=== PATIENT | female | born 1995 | race American Indian/Alaskan Native ===

== ENCOUNTER 2019-06-15 18:45 | Emergency (ER) | payer MEDICAID ==
[~2019-06-15] VITALS: Ht 165.1 cm; Wt 70.0 kg
[2019-06-15 18:59] VITALS: TEMP 97.3
[2019-06-15] MEDS ORDERED: PRENATAL TABLET PO (19:32)
[2019-06-15 19:36] LABS: COLLECTION METHOD CLEAN CATCH
[2019-06-15] MEDS ORDERED: TUMS500 MG (19:36)
[2019-06-15 20:10] LABS: BASO # 0.1 (0.0-0.2); BASO % 0.3 % (0.0-2.0); EOS # 0.2 (0.0-0.7); EOS % 1.3 % (0-4.0); GRAN # 10.9 (1.4-6.5); GRAN % 75.9 % (42.2-75.2); LYMPH # 2.4 (1.2-3.4); LYMPH % 16.9 % (20.0-51.0); MEAN CELL VOLUME 95 fl (80.0-100.0); MEAN CORPUSCULAR HEMOGLOBIN 32 pg (27.0-31.0); MEAN CORPUSCULAR HGB CONC 33 g/dl (33.0-37.0); MEAN PLATELET VOLUME 9.8 fl (7.4-10.4); MONO # 0.7 (0.1-0.6); PLATELET COUNT 399 K/mm3 (130-400); RED BLOOD COUNT 3.79 M/mm3 (4.10-5.30); REDCELL DISTRIBUTION WIDTH-CV 13.5 % (11.5-14.5)
[2019-06-15 20:19] LABS: HEMATOCRIT 35.9 % (37.0-47.0)
[2019-06-15 20:23] LABS: ALBUMIN 4.1 gm/dL (3.5-5.0); BILIRUBIN,TOTAL 0.2 mg/dL (0.0-1.0); C-REACTIVE PROTEIN 0.7 mg/dL (0.0-0.9); CALCIUM 9.3 mg/dL (8.4-10.2); CREATININE, serum 0.47 (0.52-1.25); POTASSIUM 3.6 mmol/L (3.4-5.0); TOTAL PROTEIN 7.4 gm/dL (6.4-8.2)
[2019-06-15 20:53] LABS: PH 7 (5-8); SQUAMOUS EPITHELIAL 0-2 /hpf; URINE APPEARANCE Clear; URINE BACTERIA Rare /hpf; URINE BILIRUBIN Negative (NEGATIVE); URINE BLOOD Negative (NEGATIVE); URINE COLOR Yellow; URINE GLUCOSE Negative (NEGATIVE); URINE KETONE Negative (NEGATIVE); URINE LEUKOCYTE ESTERASE Negative (NEGATIVE); URINE NITRATE Negative (NEGATIVE); URINE PROTEIN(semi-quant) Negative (NEGATIVE); URINE RBC 0-2 /hpf; URINE UROBILINOGEN Negative (NEGATIVE)
[2019-06-15 22:04] VITALS: BP 120/72; PULSE 93
== END 2019-06-15 22:04 | disposition home or self-care (01) ==
LOC: COL.ER 18:45
PROVIDERS: Emergency Medicine
DX: O99.612 Diseases of the digestive system complicating pregnancy, second trimester (principal); R19.7 Diarrhea, unspecified; O99.332 Smoking (tobacco) complicating pregnancy, second trimester; F17.210 Nicotine dependence, cigarettes, uncomplicated; Z3A.23 23 weeks gestation of pregnancy
CPT/HCPCS: J7030

== ENCOUNTER 2019-07-21 21:10 | Emergency (ER) | payer MEDICAID ==
[~2019-07-21] VITALS: Ht 165.1 cm; Wt 73.6 kg
[~2019-07-21 21:10] MED LIST: PRENATAL TABLET PO; TUMS500 MG
[2019-07-21 21:55] LABS: COLLECTION METHOD CLEAN CATCH
[2019-07-21 22:01] LABS: MUCOUS Present /lpf; PH 7 (5-8); SQUAMOUS EPITHELIAL 0-2 /hpf; URINE APPEARANCE Clear; URINE BACTERIA Rare /hpf; URINE BILIRUBIN Negative (NEGATIVE); URINE BLOOD 1+ (NEGATIVE); URINE COLOR Yellow; URINE GLUCOSE Negative (NEGATIVE); URINE KETONE Negative (NEGATIVE); URINE LEUKOCYTE ESTERASE Negative (NEGATIVE); URINE NITRATE Negative (NEGATIVE); URINE PROTEIN(semi-quant) Negative (NEGATIVE); URINE RBC 0-2 /hpf; URINE UROBILINOGEN Negative (NEGATIVE)
[2019-07-21] MEDS ORDERED: TAMIFLU 75MG75 MG PO (22:44)
[2019-07-21 22:47] VITALS: BP 113/67; PULSE 100; TEMP 98.7
== END 2019-07-21 22:54 | disposition home or self-care (01) ==
LOC: COL.ER 21:10
PROVIDERS: Emergency Medicine
DX: J11.1 Influenza due to unidentified influenza virus with other respiratory manifestations (principal); F17.210 Nicotine dependence, cigarettes, uncomplicated

== ENCOUNTER 2019-09-04 14:40 | Outpatient (CLI) | payer MEDICAID ==
[~2019-09-04] VITALS: Ht 165.1 cm; Wt 70.0 kg
[~2019-09-04 14:40] MED LIST changes: +TAMIFLU 75MG75 MG PO
[2019-09-04 14:44] VITALS: BP 120/78; PULSE 99; TEMP 98
--- NOTE | 2019-09-04 14:55 | NUR ---
Patient ambulatory to unit accompanied by family. Patient here stating she is having pain. Does not states that it is contraction pain but states it is in her abdomen and right side. Denies leaking of fluid or vaginal bleeding and report movement. FHR and contraction monitors placed and explained. SVE 2-3//-2 per John Walker RN. Assessment completed.
[2019-09-04 16:00] VITALS: BP 121/80; PULSE 83
[2019-09-04 16:30] VITALS: BP 117/77; PULSE 88
[2019-09-04 16:42] LABS: COLLECTION METHOD CLEAN CATCH
[2019-09-04 16:51] LABS: PH 7 (5-8); SQUAMOUS EPITHELIAL 0-2 /hpf; URINE APPEARANCE Clear; URINE BACTERIA None Seen /hpf; URINE BILIRUBIN Negative (NEGATIVE); URINE BLOOD Negative (NEGATIVE); URINE COLOR Straw; URINE GLUCOSE Negative (NEGATIVE); URINE KETONE Negative (NEGATIVE); URINE LEUKOCYTE ESTERASE Negative (NEGATIVE); URINE NITRATE Negative (NEGATIVE); URINE PROTEIN(semi-quant) Negative (NEGATIVE); URINE RBC None Seen /hpf; URINE UROBILINOGEN Negative (NEGATIVE); URINE WBC 0-2 /hpf
--- NOTE | 2019-09-04 17:31 | NUR ---
1731- SVE unchanged. Dr Hayes on unit and updated on Pt status and lab results. VORB to discharge Pt home with labor precautions. 1734- EFM and TOCO off. Plan of care explained, questions answered.
== END 2019-09-04 17:45 | disposition home or self-care (01) ==
LOC: LDRO 14:40
PROVIDERS: Obstetrics & Gynecology
DX: O62.9 Abnormality of forces of labor, unspecified (principal); Z3A.35 35 weeks gestation of pregnancy

== ENCOUNTER 2019-09-07 01:06 | Outpatient (CLI) | payer MEDICAID ==
[~2019-09-07] VITALS: Ht 165.1 cm; Wt 70.0 kg
--- NOTE | 2019-09-07 01:15 | NUR ---
G3L2. 36-2. Ambulatory to LDR6 with family. Clean gown on. EFM and TOCO explained and applied. Pt states she has not felt fetus move today, she also states she thinks her water broke but is unsure. States she has had "warm discharge" and is pretty sure it is her water. Pt also reports constant back pain. Denies vaginal bleeding or contractions. SVE /-2, amniotest negative, vaginal discharge noted on exam glove and second amniotrace negative. Assessment and VS taken. Pt educated on plan of care. Denies any questions at this time. Call light within reach.
[2019-09-07 01:45] VITALS: BP 124/79; PULSE 93; TEMP 98.1
--- NOTE | 2019-09-07 02:02 | NUR ---
updated on pts status. Discharge orders received. 0206: Pt updated on plan of care and verbalizes understanding. Pt off monitors to change. 0220: Discharge instructions explained to pt and family. Questions answered. Pt ambulatory off unit with family.
[2019-09-07 02:06] VITALS: BP 115/69; PULSE 91
== END 2019-09-07 02:20 | disposition home or self-care (01) ==
LOC: LDRO 01:06
DX: O36.8130 Decreased fetal movements, third trimester, not applicable or unspecified (principal); O26.893 Other specified pregnancy related conditions, third trimester; M54.5 Low back pain; Z3A.36 36 weeks gestation of pregnancy

== ENCOUNTER 2019-09-15 13:24 | Inpatient (IN) | payer MEDICAID ==
[2019-09-15] VITALS (39 sets, daily range): BP systolic 96–147; BP diastolic 54–89; PULSE 62–121; TEMP 97.3–99
[~2019-09-15] VITALS: Ht 165.1 cm; Wt 72.3 kg
--- NOTE | 2019-09-15 13:30 | NUR ---
Patient ambulatory onto unit for labor check with report of irregular contractions and leaking of fluid since 1130. Patient oriented to room, changes into gown, plan of care discussed. Patient reports good movement, denies vaginal bleeding. EFMs on, VS taken. AmniTrace +. SVE /-1. Assessment completed. Consents signed. IV started in left hand by this RN. LR bolusing for epidural placement.
[2019-09-15 14:22] LABS: BASO % 0.3 % (0.0-2.0); EOS # 0.1 (0.0-0.7); EOS % 0.6 % (0-4.0); GRAN # 11.6 (1.4-6.5); GRAN % 75.9 % (42.2-75.2); HEMOGLOBIN 10.9 g/dl (12.5-16.0); LYMPH # 2.7 (1.2-3.4); LYMPH % 17.4 % (20.0-51.0); MEAN CELL VOLUME 93 fl (80.0-100.0); MEAN CORPUSCULAR HEMOGLOBIN 31 pg (27.0-31.0); MEAN CORPUSCULAR HGB CONC 33 g/dl (33.0-37.0); MEAN PLATELET VOLUME 9.6 fl (7.4-10.4); MONO # 0.8 (0.1-0.6); MONO % 5.3 % (1.7-9.3); PLATELET COUNT 462 K/mm3 (130-400); RED BLOOD COUNT 3.53 M/mm3 (4.10-5.30); REDCELL DISTRIBUTION WIDTH-CV 13.1 % (11.5-14.5)
[2019-09-15 14:23] LABS: HEMATOCRIT 32.8 % (37.0-47.0)
--- NOTE | 2019-09-15 14:30 | NUR ---
1418: Lidocaine. 1422: Epidural Catheter placed. Test Dose given by Afia HARRIS, no adverse reactions noted. 1427: Patient repositioned to left tilt. Plan of care discussed. Questions answered. Call light within reach.
--- NOTE | 2019-09-15 14:55 | NUR ---
SVE /-1. Alexander catheter placed. Patient denies pain or needs. Encouraged to rest. Call light within reach.
--- NOTE | 2019-09-15 16:20 | NUR ---
SVE /-1. Patient repositioned to right tilt. Denies pain or needs. Family at bedside. Call light within reach.
--- NOTE | 2019-09-15 17:30 | NUR ---
Patient repositioned to 'carl position'. SVE -/-1. Denies needs.
--- NOTE | 2019-09-15 18:15 | NUR ---
Bedside report to Xiomara BARRAGAN at this time. Patient reports pressure with contractions. SVE unchanged per Xiomara BARRAGAN.
--- NOTE | 2019-09-15 22:11 | NUR ---
FHT's with variable decelerations to 90's with peak of contractions. SVE as noted.
--- NOTE | 2019-09-15 22:45 | NUR ---
SVE ant rim. Turned to side to side to change chux and perform pericare. Alexander catheter dc'd. Pt tense, tearful states "I'm just worried about everything" Mother @ bedside, doting, provides emotional support. 2256 Alexander DC'd. 230 Complete. Pushing instructions given. pt states "I don't really feel the contractions, just pressure" Slight descent with pushing. Pt instructed to breath through next contraction. 2301 Dr Hayes called to come for delivery. 2303 Pt involuntarily pushing. 2310 without voluntary pushing, Perineal prep completed. 3 Head delivers, LOT presentation, nuchal cord x1 reduced prior to delivery of body. To mother's abd. 2314 Dr Hayes into room, clamps cord. 8 Placenta delivers spont and intact. Pitocin gtt to bolus rate. Perineal inspection reveals no lacerations. Pericare performed, ice pack to perineum. Bed back together. Family and pt, loving and excited about delivery.
[2019-09-16] VITALS (7 sets, daily range): BP systolic 109–160; BP diastolic 55–76; PULSE 61–88; TEMP 97.2–98.7
--- NOTE | 2019-09-16 01:00 | NUR ---
Pt states "my R leg is still numb" able to move R leg, bend R knee but unable to lift hips from bed.
--- NOTE | 2019-09-16 02:30 | NUR ---
Up to bathroom with slightly unsteady gait. Voids large amount, performs own pericare after instructions. Clean gown on. To room via wheelchair. Pt and spouse instructed that pt not to get out of bed without staff assistance, verbalize understanding.
--- NOTE | 2019-09-16 12:08 | NUR ---
Initial visit; Parents thanked Felting Machine Operator for offering congratulations and God's blessings for the of their son. Felting Machine Operator thanked family for choosing our hospital.
[2019-09-17 07:30] VITALS: BP 127/84; PULSE 75; TEMP 97.7
[2019-09-17] MEDS ORDERED: MOTRIN 600600 MG/TAB PO (07:31)
--- NOTE | 2019-09-17 14:40 | NUR ---
1440-Reviewed discharge instructions with patient. Provided follow up appointment. Patient denies questions. Verbalized understanding of when to call MD. 1600-Patient ambulatory off unit with friend.
== END 2019-09-17 16:00 | disposition home or self-care (01) | DRG 807 ==
LOC: LDRO 13:24 → LDR 13:25 → OB 13:25
PROVIDERS: ADMIT Obstetrics & Gynecology
PROC: 10E0XZZ Delivery of Products of Conception, External Approach (ICD-10-PCS; principal; 2019-09-15)
DX: O99.824 Streptococcus B carrier state complicating childbirth (principal); Z37.0 Single live birth; O99.52 Diseases of the respiratory system complicating childbirth; O99.344 Other mental disorders complicating childbirth; J45.909 Unspecified asthma, uncomplicated; O99.334 Smoking (tobacco) complicating childbirth; F17.210 Nicotine dependence, cigarettes, uncomplicated; F32.9 Major depressive disorder, single episode, unspecified; Z3A.37 37 weeks gestation of pregnancy
CPT/HCPCS: J2405; J2540; J2590; J7120

== ENCOUNTER 2020-06-06 05:37 | Emergency (ER) | payer MEDICAID ==
[~2020-06-06] VITALS: Ht 165.1 cm; Wt 67.3 kg
[~2020-06-06 05:37] MED LIST changes: +MOTRIN 600600 MG/TAB PO
[2020-06-06 05:43] VITALS: TEMP 98.1
[2020-06-06] MEDS ORDERED: PROAIR HFA0.09 MG/AC IH (05:52)
[2020-06-06 06:19] LABS: COLLECTION METHOD CLEAN CATCH
[2020-06-06 06:22] LABS: HEMATOCRIT 38.6 % (37.0-47.0); HEMOGLOBIN 13.3 g/dl (12.5-16.0); MEAN CELL VOLUME 90 fl (80.0-100.0); MEAN CORPUSCULAR HEMOGLOBIN 31 pg (27.0-31.0); MEAN CORPUSCULAR HGB CONC 35 g/dl (33.0-37.0); MEAN PLATELET VOLUME 9.4 fl (7.4-10.4); PLATELET COUNT 404 K/mm3 (130-400); REDCELL DISTRIBUTION WIDTH-CV 13.7 % (11.5-14.5)
[2020-06-06 06:33] LABS: ALBUMIN 4.2 gm/dL (3.5-5.0); BILIRUBIN,TOTAL 0.4 mg/dL (0.0-1.0); CALCIUM 9.5 mg/dL (8.4-10.2); CREATININE, serum 0.4 (0.52-1.25); POTASSIUM 4.1 mmol/L (3.4-5.0); TOTAL PROTEIN 7.7 gm/dL (6.4-8.2)
[2020-06-06 06:35] LABS: PH 7 (5-8); SQUAMOUS EPITHELIAL 0-2 /hpf; URINE APPEARANCE Clear; URINE BACTERIA None Seen /hpf; URINE BILIRUBIN Negative (NEGATIVE); URINE BLOOD 3+ (NEGATIVE); URINE COLOR Yellow; URINE GLUCOSE Negative (NEGATIVE); URINE KETONE Negative (NEGATIVE); URINE LEUKOCYTE ESTERASE Negative (NEGATIVE); URINE NITRATE Negative (NEGATIVE); URINE PROTEIN(semi-quant) Negative (NEGATIVE); URINE UROBILINOGEN Negative (NEGATIVE)
[2020-06-06 09:26] LABS: BAND 2 % (0-10); LYMPHOCYTE 9 % (20.0-51.0); NEUTROPHILS 85 % (42.0-75.2); PLATELET ESTIMATE INCREASED (NORMAL)
[2020-06-06 09:47] VITALS: BP 114/66; PULSE 87
== END 2020-06-06 09:53 | disposition home or self-care (01) ==
LOC: COL.ER 05:37
PROVIDERS: Family Medicine
DX: O03.9 Complete or unspecified spontaneous abortion without complication (principal)
CPT/HCPCS: Q9967

== ENCOUNTER 2020-06-14 00:23 | Emergency (ER) | payer MEDICAID ==
[~2020-06-14] VITALS: Ht 165.1 cm; Wt 67.3 kg
[~2020-06-14 00:23] MED LIST changes: +PROAIR HFA0.09 MG/AC IH
[2020-06-14 00:38] VITALS: BP 101/61; PULSE 114; TEMP 98.5
[2020-06-14] MEDS ORDERED: FLEXERIL 1010 MG/TAB PO (01:51)
[2020-06-14] MEDS ORDERED: NAPROSYN 2250 MG/TAB PO (01:51)
[2020-06-15] MEDS ORDERED: CEFTIN 250250 MG/TAB PO (01:22)
== END 2020-06-14 03:00 | disposition home or self-care (01) ==
LOC: COL.ER 00:23
DX: M54.5 Low back pain (principal)
CPT/HCPCS: J1885

== ENCOUNTER 2020-06-16 20:06 | Emergency (ER) | payer MEDICAID ==
[~2020-06-16] VITALS: Ht 165.1 cm; Wt 67.3 kg
[~2020-06-16 20:06] MED LIST changes: +CEFTIN 250250 MG/TAB PO; +FLEXERIL 1010 MG/TAB PO; +NAPROSYN 2250 MG/TAB PO
[2020-06-16] MEDS ORDERED: PREDNISONE50 MG PO (20:40)
[2020-06-16] MEDS ORDERED: NEURONTIN300 MG/CAP PO (20:40)
[2020-06-16 20:55] VITALS: BP 127/68; PULSE 71; TEMP 98.7
== END 2020-06-16 21:00 | disposition home or self-care (01) ==
LOC: COL.ER 20:06
DX: M54.16 Radiculopathy, lumbar region (principal); F17.210 Nicotine dependence, cigarettes, uncomplicated
CPT/HCPCS: J1885; J2060

== ENCOUNTER 2020-07-07 02:09 | Inpatient (IN) | payer MEDICAID ==
[~2020-07-07] VITALS: Ht 165.1 cm; Wt 68.2 kg
[2020-07-07] VITALS (32 sets, daily range): BP systolic 84–109; BP diastolic 34–81; PULSE 75–113; TEMP 96.2–98.8
[~2020-07-07 02:09] MED LIST changes: +NEURONTIN300 MG/CAP PO; +PREDNISONE50 MG PO
[2020-07-07 02:36] LABS: BASO # 0.1 (0.0-0.2); BASO % 0.5 % (0.0-2.0); EOS # 0.3 (0.0-0.7); EOS % 1.7 % (0-4.0); GRAN # 10.5 (1.4-6.5); GRAN % 63.6 % (42.2-75.2); LYMPH # 4.8 (1.2-3.4); LYMPH % 28.9 % (20.0-51.0); MEAN CELL VOLUME 95 fl (80.0-100.0); MEAN CORPUSCULAR HGB CONC 32 g/dl (33.0-37.0); MEAN PLATELET VOLUME 9.1 fl (7.4-10.4); MONO # 0.8 (0.1-0.6); MONO % 4.6 % (1.7-9.3); PLATELET COUNT 464 K/mm3 (130-400); RED BLOOD COUNT 3.12 M/mm3 (4.10-5.30); REDCELL DISTRIBUTION WIDTH-CV 14.2 % (11.5-14.5)
[2020-07-07 02:42] LABS: HEMATOCRIT 29.7 % (37.0-47.0); HEMOGLOBIN 9.6 g/dl (12.5-16.0); MEAN CORPUSCULAR HEMOGLOBIN 31 pg (27.0-31.0)
[2020-07-07 02:43] LABS: ALBUMIN 3.3 gm/dL (3.5-5.0); BILIRUBIN,TOTAL 0.2 mg/dL (0.0-1.0); CALCIUM 8.6 mg/dL (8.4-10.2); CREATININE, serum 0.45 (0.52-1.25)
[2020-07-07 02:47] LABS: POTASSIUM 2.8 mmol/L (3.4-5.0)
--- NOTE | 2020-07-07 06:20 | NUR ---
Report from Don BARRAGAN and Shreyas HARRIS. VS taken. Temperature 96.2 axillary. Warm blankets applied. Patient sleeping, but arouses to name. Denies pain or nausea at this time. Will continue to monitor.
--- NOTE | 2020-07-07 07:10 | NUR ---
Pt sleeping, arouses to name. Bear hugger warmer applied. Denies pain at this time. Bed in low and locked position. Call light in reach.
--- NOTE | 2020-07-07 07:47 | NUR ---
PT SLEEPING BETWEEN DISTURBANCES. DENIES PAIN. NO BLEEDING NOTED.
[2020-07-07 09:11] LABS: BASO % 0.2 % (0.0-2.0); EOS % 0.1 % (0-4.0); GRAN # 13.1 (1.4-6.5); GRAN % 83.7 % (42.2-75.2); LYMPH # 1.9 (1.2-3.4); LYMPH % 11.9 % (20.0-51.0); MEAN CELL VOLUME 97 fl (80.0-100.0); MEAN CORPUSCULAR HGB CONC 34 g/dl (33.0-37.0); MEAN PLATELET VOLUME 8.9 fl (7.4-10.4); MONO # 0.4 (0.1-0.6); MONO % 2.6 % (1.7-9.3); RED BLOOD COUNT 1.75 M/mm3 (4.10-5.30); REDCELL DISTRIBUTION WIDTH-CV 14.6 % (11.5-14.5)
[2020-07-07 09:22] LABS: HEMOGLOBIN 5.7 g/dl (12.5-16.0); MEAN CORPUSCULAR HEMOGLOBIN 33 pg (27.0-31.0)
[2020-07-07 09:23] LABS: PLATELET COUNT 285 K/mm3 (130-400)
--- NOTE | 2020-07-07 09:45 | NUR ---
Initial visit attempt; Patient resting, [employer] Network Architect left prayer card for patient letting her know of the availablity of [facility] at our hospital.
--- NOTE | 2020-07-07 10:45 | NUR ---
FIRST OF [facility] TRANSFUSING. RN AT BEDSIDE X 15 MIN. PT DENIES S/SX OF REACTION. DENIES PAIN.
--- NOTE | 2020-07-07 13:14 | NUR ---
SECOND UNIT OF [facility] STARTED AT 1300. PT DENIES ANY S/SX OF REACTION WITH FIRST UNIT. RN REMAINS AT BEDSIDE DURING FIRST 15 MIN OF TRANSFUSION. PT ALERT AND EATING LUNCH. DENIES PAIN AT THIS TIME. CALL LIGHT IN REACH. BED IN LOW AND LOCKED POSITION.
--- NOTE | 2020-07-07 15:22 | NUR ---
SECOND UNIT [facility] COMPLETE. PT DENIES S/SX OF REACTION. PT SLEEPING BETWEEN DISTRUBANCES.
--- NOTE | 2020-07-07 19:00 | NUR ---
1900 UP TO BR WITH STAND BY ASSIST. MEG WELL. VOIDED 600CC. SCANT VAG DRAINAGE NOTED ON PAD. RETURNED TO BED AND REG DIET TAKEN. STATES WOULD LIKE TO GO HOME TONIGHT IF ABLE. [address] PUENTE HERE TO VISIT PT. 2049 IV DCD. DISMISS INSTRUCTIONS GIVEN 2129 HOME PER W/C ACC BY SISTER. NO QUESTIONS ON DISMISSAL.
[2020-07-07 19:43] LABS: BASO % 0.3 % (0.0-2.0); EOS # 0.1 (0.0-0.7); GRAN # 7.2 (1.4-6.5); GRAN % 63.4 % (42.2-75.2); LYMPH # 3.2 (1.2-3.4); MEAN CORPUSCULAR HGB CONC 34 g/dl (33.0-37.0); MEAN PLATELET VOLUME 9.3 fl (7.4-10.4); MONO # 0.7 (0.1-0.6); MONO % 6.6 % (1.7-9.3); PLATELET COUNT 290 K/mm3 (130-400); RED BLOOD COUNT 2.49 M/mm3 (4.10-5.30); REDCELL DISTRIBUTION WIDTH-CV 14.7 % (11.5-14.5)
[2020-07-07 19:46] LABS: HEMATOCRIT 22.8 % (37.0-47.0); HEMOGLOBIN 7.7 g/dl (12.5-16.0); MEAN CELL VOLUME 92 fl (80.0-100.0); MEAN CORPUSCULAR HEMOGLOBIN 31 pg (27.0-31.0)
[2020-07-07 19:53] LABS: ALBUMIN 2.2 gm/dL (3.5-5.0); BILIRUBIN,TOTAL 0.2 mg/dL (0.0-1.0); CALCIUM 7.6 mg/dL (8.4-10.2); CREATININE, serum 0.48 (0.52-1.25); POTASSIUM 3.9 mmol/L (3.4-5.0); TOTAL PROTEIN 4.3 gm/dL (6.4-8.2)
== END 2020-07-07 21:30 | disposition home or self-care (01) | DRG 770 ==
LOC: COL.ER 02:09 → OB 03:42
PROVIDERS: Obstetrics & Gynecology; ADMIT Emergency Medicine
PROC: 10D17ZZ Extraction of Products of Conception, Retained, Via Natural or Artificial Opening (ICD-10-PCS; principal; 2020-07-07)
DX: O03.4 Incomplete spontaneous abortion without complication (principal); D62 Acute posthemorrhagic anemia; E87.6 Hypokalemia; F32.9 Major depressive disorder, single episode, unspecified; K21.9 Gastro-esophageal reflux disease without esophagitis
CPT/HCPCS: J0690; J2210; J2405; J2704; J3010; J3480; J7030; J7120; P9016